=== PATIENT | female | born 1980 | race American Indian/Alaskan Native ===

== ENCOUNTER 2017-05-23 18:24 | Emergency (ER) | payer MEDICAID, OTHER ==
[2017-05-23] MEDS ORDERED: traMADol 50 MG Tab PO ONE (18:25)
[2017-05-23] MEDS ORDERED: Sodium Chloride 0.9% 1,000 ML IV ONE (18:43)
[2017-05-23] MEDS ORDERED: Morphine 2 MG/ML Syringe IVPUSH ONE ×2 (18:59→20:19)
[2017-05-23] MEDS ORDERED: Ondansetron 4 MG/2 ML SDV IV ONE (18:59)
--- NOTE | 2017-05-23 19:04 | EDM.PDOC ---
ED HPI GENERAL MEDICAL PROBLEM - General Chief Complaint: Abdominal Pain Stated Complaint: STOMACH PAIN [id number] Time Seen by Provider: 05/23/17 19:00 Source of Information: Reports: Family History Limitations: Reports: Other (crying) - History of Present Illness INITIAL COMMENTS - FREE TEXT/NARRATIVE: spouse states pt been having upper abd' pain since Wednesday, not seen anyone & not going away, thought it's due to constipation but not taken anything for this , tonight getting worse. no appetite. Abdomen Pain Score (Numeric/FACES): 9 - Related Data Allergies Allergy/AdvReac Type Severity Reaction Status Date / Time ciprofloxacin Allergy Rash Verified 05/23/17 18:34 Home Meds: Home Meds Aspirin [Adult Low Dose Aspirin EC] 81 mg PO DAILY 01/30/15 [History] Pioglitazone [Actos] 30 mg PO DAILY 01/30/15 [History] atorvaSTATin [Lipitor] 40 mg PO DAILY 01/30/15 [History] glipiZIDE [Glucotrol] 5 mg PO BID 01/30/15 [History] Celecoxib [CeleBREX] 100 mg PO BID 05/25/16 [History] Cyclobenzaprine [Flexeril] 10 mg PO TID 05/25/16 [History] Clindamycin HCl 300 mg PO QID 06/06/16 [History] Ondansetron [Zofran] 8 mg PO ASDIRECTED PRN 06/06/16 [History] Past Medical History Cardiovascular History: Reports: High Cholesterol Musculoskeletal History: Reports: Back Pain, Chronic Neurological History: Reports: Migraines Endocrine/Metabolic History: Reports: Diabetes, Type II Dermatologic History: Reports: Other (See Below) Other Dermatologic History: abscesses to breasts that reoccur, patient take clindamycin QID for these abscesses. - Infectious Disease History Infectious Disease History: Reports: None Social & Family History - Family History Family Medical History: Noncontributory - Tobacco Use Smoking Status *Q: Former Smoker Used Tobacco, but Quit: Yes Month Tobacco Last Used: unknown - Caffeine Use Caffeine Use: Reports: None - Recreational Drug Use Recreational Drug Use: No ED ROS GENERAL - Review of Systems Review Of Systems: ROS reveals no pertinent complaints other than HPI. ED EXAM, GI/ABD - Physical Exam Exam: See Below Exam Limited By: Other (crying & rolling about.) General Appearance: Alert, WD/WN, Mild Distress, Other (crying) Ears: Hearing Grossly Normal Throat/Mouth: Normal Voice, No Airway Compromise Head: Atraumatic Neck: Non-Tender, Full Range of Motion Respiratory/Chest: No Respiratory Distress Cardiovascular: Regular Rate, Rhythm GI/Abdominal Exam: Tender, Other (epiG tender with splinting). No: Distended, Guarding, Rigid, Rebound Neurological: Alert, Oriented, Normal Cognition, Normal Gait, No Motor/Sensory Deficits Psychiatric: Tearful Skin Exam: Warm, Dry, Normal Color Lymphatic: No Adenopathy Course - Vital Signs Last Recorded V/S: Last Vital Signs Temp 37.1 C 05/23/17 18:36 Pulse 108 H 05/23/17 18:36 Resp 20 05/23/17 18:36 BP 136/81 05/23/17 18:36 Pulse Ox 99 05/23/17 18:36 - Orders/Labs/Meds Labs: Laboratory Tests 05/23/17 05/23/17 Range/Units 18:47 18:47 WBC 13.1 H (5.0-10.0) 10^3/uL RBC 5.27 (4.2-5.4) 10^6/uL Hgb 14.7 (12.0-16.0) g/dL Hct 43.6 (37.0-47.0) % MCV 82.7 (80-100) fL MCH 27.9 (27.0-34.0) pg MCHC 33.7 (33.0-35.0) g/dL Plt Count 217 (150-450) 10^3/uL Neut % (Auto) 67.8 (42.2-75.2) % Lymph % (Auto) 24.6 (20.5-50.1) % [place] % (Auto) 6.3 (2-8) % Eos % (Auto) 1.1 (1.0-3.0) % Baso % (Auto) 0.2 (0.0-1.0) % Sodium 141 (135-145) mmol/L Potassium 3.6 (3.6-5.0) mmol/L Chloride 103 (101-111) mmol/L Carbon Dioxide 26.0 (21.0-31.0) mmol/L Anion Gap 15.6 BUN 9 (7-18) mg/dL Creatinine 0.6 (0.6-1.3) mg/dL Est Cr Clr Drug Dosing 122.51 mL/min Estimated GFR (MDRD) > 60 BUN/Creatinine Ratio 15.00 Glucose 181 H (74-105) mg/dL Calcium 9.1 (8.4-10.2) mg/dl Total Bilirubin 0.3 (0.2-1.0) mg/dL AST 25 (10-42) IU/L ALT 31 (10-60) IU/L Alkaline Phosphatase 83 (42-121) IU/L Total Protein 7.8 (6.7-8.2) g/dl Albumin 3.9 (3.2-5.5) g/dl Globulin 3.9 Albumin/Globulin Ratio 1.00 Amylase 46 (28-100) U/L Lipase 24 (22-51) U/L HCG, Qual Negative Meds: Medications Discontinued Medications Generic Name Dose Route Start Last Admin Trade Name Freq PRN Reason Stop Dose Admin Dicyclomine HCl 20 mg 05/23/17 20:52 Bentyl IM 05/23/17 20:53 ONETIME ONE Sodium Chloride 1,000 mls @ 500 mls/hr 05/23/17 18:43 05/23/17 18:51 Normal Saline IV 05/23/17 20:42 500 mls/hr .BOLUS ONE Administration Iopamidol 100 ml 05/23/17 19:17 05/23/17 19:21 Isovue-300 (61%) IVPUSH 05/23/17 19:18 100 ml ONETIME ONE Administration Morphine Sulfate 2 mg 05/23/17 18:59 05/23/17 19:04 Morphine IVPUSH 05/23/17 19:00 2 mg ONETIME ONE Administration Morphine Sulfate 2 mg 05/23/17 20:19 05/23/17 20:23 Morphine IVPUSH 05/23/17 20:20 2 mg ONETIME ONE Administration Ondansetron HCl 4 mg 05/23/17 18:59 05/23/17 19:04 Zofran IV 05/23/17 19:00 4 mg ONETIME ONE Administration - Re-Assessments/Exams Free Text/Narrative Re-Assessment/Exam: 05/23/17 20:54 results discussed with pt & spouse. Departure - Departure Time of Disposition: 20:54 Disposition: Home, Self-Care 01 Condition: Good Clinical Impression: Abdominal pain Qualifiers: Abdominal location: upper abdomen, unspecified Qualified Code(s): R10.10 - Upper abdominal pain, unspecified - Discharge Information Instructions: Constipation, Adult, [id number] Forms: ED Department Discharge Additional Instructions: 1) rest 2) try MIRALAX 3) avoid solid foods next 4 to 5 days 4) follow up at clinic or recheck as needed rx given benyl 10mg bid for cramps x 12 tramadol 50mg bid prn x 6
[2017-05-23 19:12] LABS: CHLORIDE,CL 103 mmol/L (101-111); SODIUM,NA 141 mmol/L (135-145)
[2017-05-23] MEDS ORDERED: Iopamidol 612 MG/ML 100 ML Bottle IVPUSH ONE (19:17)
[2017-05-23] MEDS ORDERED: Dicyclomine 20 MG/2 ML SDV IM ONE (20:52)
[2017-05-23] MEDS ORDERED: traMADol 50 MG Tab ONE (21:06)
[2017-05-23 21:24] VITALS: BP 132/85
== END 2017-05-23 21:19 | disposition home or self-care (01) ==
LOC: DL.ED 18:24
DX: R10.10 Upper abdominal pain, unspecified (principal); E78.00 Pure hypercholesterolemia, unspecified; G43.909 Migraine, unspecified, not intractable, without status migrainosus; E11.9 Type 2 diabetes mellitus without complications; Z88.1 Allergy status to other antibiotic agents; Z79.82 Long term (current) use of aspirin; Z79.899 Other long term (current) drug therapy; Z79.84 Long term (current) use of oral hypoglycemic drugs
CPT/HCPCS: 36415; 74177; 80053; 82150; 83690; 84703; 85025; 96361; 96372; 96374; 96375; 99284; A9270; J0500; J2270; J2405; J7030; Q9967

== ENCOUNTER 2019-01-31 22:58 | Emergency (ER) | payer MEDICAID, OTHER ==
[2019-01-31 23:29] VITALS: BP 130/71
[2019-01-31] MEDS ORDERED: Iopamidol 612 MG/ML 100 ML Bottle IVPUSH ONE (23:35)
--- NOTE | 2019-01-31 23:41 | EDM.PDOC ---
ED HPI GENERAL MEDICAL PROBLEM - General Chief Complaint: Upper Extremity Injury/Pain Stated Complaint: INFECTION IN ARM, POST SURGERY [id number] Time Seen by Provider: 01/31/19 23:25 Source of Information: Reports: Patient History Limitations: Reports: No Limitations - History of Present Illness INITIAL COMMENTS - FREE TEXT/NARRATIVE: This 38 yo female patient reports to the ED with increased pain and swelling in her left upper extremity (wrist and hand). The patient had carpal tunnel surgery last week, but today noticed increased pain and swelling in the area. The patient reports her 2 year old child did accidentally kick her in the right hand earlier today. Prior to coming to the ED, the patient did call the nursing line in [place] and was advised to come to the ED to be evaluated. Onset: Today Duration: Constant Location: Reports: Upper Extremity, Left Quality: Reports: Ache, Dull Severity: Moderate Improves with: Reports: None Worsens with: Reports: None Context: Reports: Other Associated Symptoms: Reports: No Other Symptoms - Related Data Allergies Allergy/AdvReac Type Severity Reaction Status Date / Time ciprofloxacin Allergy Rash Verified 05/23/17 18:34 Home Meds: Home Meds Aspirin [Adult Low Dose Aspirin EC] 81 mg PO DAILY 01/30/15 [History] Pioglitazone [Actos] 30 mg PO DAILY 01/30/15 [History] atorvaSTATin [Lipitor] 40 mg PO DAILY 01/30/15 [History] glipiZIDE [Glucotrol] 5 mg PO BID 01/30/15 [History] Celecoxib [CeleBREX] 100 mg PO BID 05/25/16 [History] Cyclobenzaprine [Flexeril] 10 mg PO TID 05/25/16 [History] Clindamycin HCl 300 mg PO QID 06/06/16 [History] Ondansetron [Zofran] 8 mg PO ASDIRECTED PRN 06/06/16 [History] Insulin Detemir [Levemir] 15 unit SUBCUT DAILY 01/31/19 [History] Past Medical History Cardiovascular History: Reports: High Cholesterol Musculoskeletal History: Reports: Back Pain, Chronic Neurological History: Reports: Migraines Endocrine/Metabolic History: Reports: Diabetes, Type I Dermatologic History: Reports: Other (See Below) Other Dermatologic History: abscesses to breasts that reoccur, patient take clindamycin QID for these abscesses. - Infectious Disease History Infectious Disease History: Reports: None Social & Family History - Family History Family Medical History: Noncontributory - Tobacco Use Smoking Status *Q: Never Smoker Second Hand Smoke Exposure: No - Caffeine Use Caffeine Use: Reports: Soda - Recreational Drug Use Recreational Drug Use: No Review of Systems - Review of Systems Review Of Systems: ROS reveals no pertinent complaints other than HPI. ED EXAM, GENERAL - Physical Exam Exam: See Below Exam Limited By: No Limitations General Appearance: Alert, WD/WN, Mild Distress Eye Exam: Bilateral Eye: EOMI, Normal Inspection, PERRL Ears: Normal External Exam, Normal Canal, Hearing Grossly Normal, Normal TMs Nose: Normal Inspection, Normal Mucosa, No Blood Throat/Mouth: Normal Inspection, Normal Lips, Normal Teeth, Normal Gums, Normal Oropharynx, Normal Voice, No Airway Compromise Head: Atraumatic, Normocephalic Neck: Normal Inspection, Supple, Non-Tender, Full Range of Motion Respiratory/Chest: No Respiratory Distress, Lungs Clear, Normal Breath Sounds, No Accessory Muscle Use, Chest Non-Tender Cardiovascular: Normal Peripheral Pulses, Regular Rate, Rhythm, No Edema, No Gallop, No JVD, No Murmur, No Rub GI/Abdominal: Normal Bowel Sounds, Soft, Non-Tender, No Organomegaly, No Distention, No Abnormal Bruit, No Mass (Female) Exam: Deferred Rectal (Female) Exam: Deferred Back Exam: Normal Inspection, Full Range of Motion, NT Extremities: Arm Pain (left upper extremity pain and swelling near incision site , there is some mild erythema over the ulnar aspect of the wrist and some bruising proximal to the surgical site. ), Limited Range of Motion (due to pain) Neurological: Alert, Oriented, CN II-XII Intact, Normal Cognition, Normal Gait, Normal Reflexes, No Motor/Sensory Deficits Psychiatric: Normal Affect, Normal Mood Skin Exam: Warm, Dry, Intact, Normal Color, No Rash Lymphatic: No Adenopathy Course - Vital Signs Last Recorded V/S: Last Vital Signs Temp 36.6 C 01/31/19 23:16 Pulse 82 01/31/19 23:16 Resp 18 01/31/19 23:16 BP 130/71 01/31/19 23:16 Pulse Ox 99 01/31/19 23:16 - Orders/Labs/Meds Orders: Active Orders 24 hr Category Date Time Status Upper Extremity w Cont Lt [CT] Urgent Exams 01/31/19 23:33 Taken Labs: Laboratory Tests 01/31/19 01/31/19 Range/Units 23:20 23:20 WBC 8.8 (5.0-10.0) 10^3/uL RBC 5.01 (4.2-5.4) 10^6/uL Hgb 14.2 (12.0-16.0) g/dL Hct 42.6 (37.0-47.0) % MCV 85.0 (80-100) fL MCH 28.3 (27.0-34.0) pg MCHC 33.3 (33.0-35.0) g/dL Plt Count 196 (150-450) 10^3/uL Neut % (Auto) 56.0 (42.2-75.2) % Lymph % (Auto) 34.3 (20.5-50.1) % [place] % (Auto) 6.0 (2-8) % Eos % (Auto) 3.4 H (1.0-3.0) % Baso % (Auto) 0.3 (0.0-1.0) % Sodium 133 L (135-145) mmol/L Potassium 4.5 (3.6-5.0) mmol/L Chloride 104 (101-111) mmol/L Carbon Dioxide 23.0 (21.0-31.0) mmol/L Anion Gap 10.5 BUN 14 (7-18) mg/dL Creatinine 0.6 (0.6-1.3) mg/dL Est Cr Clr Drug Dosing 116.64 mL/min Estimated GFR (MDRD) > 60 BUN/Creatinine Ratio 23.33 Glucose 167 H (74-105) mg/dL Calcium 8.6 (8.4-10.2) mg/dl Total Bilirubin 0.5 (0.2-1.0) mg/dL AST 34 (10-42) IU/L ALT 28 (10-60) IU/L Alkaline Phosphatase 84 (42-121) IU/L Total Protein 7.6 (6.7-8.2) g/dl Albumin 4.1 (3.2-5.5) g/dl Globulin 3.5 Albumin/Globulin Ratio 1.17 Meds: Medications Discontinued Medications Generic Name Dose Route Start Last Admin Trade Name Freq PRN Reason Stop Dose Admin Iopamidol 100 ml 01/31/19 23:35 Isovue-300 (61%) IVPUSH 01/31/19 23:36 ONETIME ONE Departure - Departure Time of Disposition: 00:59 Disposition: Home, Self-Care 01 Condition: Fair Clinical Impression: Pain and swelling of left wrist - Discharge Information *PRESCRIPTION DRUG MONITORING PROGRAM REVIEWED*: Not Applicable *COPY OF PRESCRIPTION DRUG MONITORING REPORT IN PATIENT LOEPZ: Not Applicable Forms: ED Department Discharge Care Plan Goals: The patient was advised of the examination, lab and CT results during the visit. The patient was encouraged to rest, ice and elevate her left wrist and hand. If the patient has any additional symptoms or concerns, the patient should either return to the emergency department or visit her primary care facility. - My Orders Last 24 Hours: My Active Orders 01/31/19 23:33 Upper Extremity w Cont Lt [CT] Urgent - Assessment/Plan Last 24 Hours: My Active Orders 01/31/19 23:33 Upper Extremity w Cont Lt [CT] Urgent
[2019-01-31 23:45] LABS: ANION GAP 10.5; CHLORIDE,CL 104 mmol/L (101-111); SODIUM,NA 133 mmol/L (135-145)
== END 2019-02-01 01:02 | disposition home or self-care (01) ==
LOC: DL.ED 22:58
DX: M25.532 Pain in left wrist (principal); E10.9 Type 1 diabetes mellitus without complications; E78.00 Pure hypercholesterolemia, unspecified; Z79.82 Long term (current) use of aspirin; Z79.4 Long term (current) use of insulin; Z88.1 Allergy status to other antibiotic agents
CPT/HCPCS: 36415; 73201; 80053; 85025; 99283; Q9967

== ENCOUNTER 2020-04-19 17:33 | Emergency (ER) | payer MEDICAID ==
[2020-04-19] MEDS ORDERED: Lactated Ringers 1,000 ML IV ONE (17:40)
[2020-04-19 17:41] VITALS: BP 130/61; PULSE 94
[2020-04-19] MEDS ORDERED: fentaNYL 100 MCG/2 ML SDV IVPUSH ONE (17:52)
[2020-04-19 18:15] LABS: ANION GAP 16.5 mEq/L (7-13); CHLORIDE,CL 100 mmol/L (98-107); SODIUM,NA 137 mmol/L (136-145)
--- NOTE | 2020-04-19 18:19 | EDM.PDOC ---
<Skye Akers - Last Filed: 04/19/20 18:55> ED HPI GENERAL MEDICAL PROBLEM - General Chief Complaint: Flank Pain Stated Complaint: AMBULANCE Time Seen by Provider: 04/19/20 18:00 Source of Information: Reports: Patient, EMS, EMS Notes Reviewed, RN, RN Notes Reviewed History Limitations: Reports: No Limitations - History of Present Illness INITIAL COMMENTS - FREE TEXT/NARRATIVE: Patient presents to ER per [facility] with complaint of right lower quadrant pain radiating to the right flank/back. Patient states she was to the clinic yesterday, they wanted to transfer her into ER, and patient refused at that time. Patient states she has been having frequency, urgency, burning with urination for the past couple of days. Admits to fever and chills. Rates pain 10/10 to the right flank. Denies nausea, vomiting, diarrhea, chest pains or shortness of breath. Patient denies chances of . States she does still have her appendix. Onset: Gradual Right Flank Pain Score (Numeric/FACES): 10 - Related Data Allergies Allergy/AdvReac Type Severity Reaction Status Date / Time ciprofloxacin Allergy Rash Verified 04/19/20 17:41 Home Meds: Home Meds Aspirin [Adult Low Dose Aspirin EC] 81 mg PO DAILY 01/30/15 [History] Pioglitazone [Actos] 30 mg PO DAILY 01/30/15 [History] atorvaSTATin [Lipitor] 40 mg PO DAILY 01/30/15 [History] glipiZIDE [Glucotrol] 5 mg PO BID 01/30/15 [History] Celecoxib [CeleBREX] 100 mg PO BID 05/25/16 [History] Cyclobenzaprine [Flexeril] 10 mg PO TID 05/25/16 [History] Clindamycin HCl 300 mg PO QID 06/06/16 [History] Ondansetron [Zofran] 8 mg PO ASDIRECTED PRN 06/06/16 [History] Insulin Detemir [Levemir] 15 unit SUBCUT DAILY 01/31/19 [History] Past Medical History Cardiovascular History: Reports: High Cholesterol Musculoskeletal History: Reports: Back Pain, Chronic Neurological History: Reports: Migraines Endocrine/Metabolic History: Reports: Diabetes, Type I Dermatologic History: Reports: Other (See Below) Other Dermatologic History: abscesses to breasts that reoccur, patient take clindamycin QID for these abscesses. - Infectious Disease History Infectious Disease History: Reports: None Social & Family History - Family History Family Medical History: Noncontributory - Tobacco Use Smoking Status *Q: Never Smoker Second Hand Smoke Exposure: No - Caffeine Use Caffeine Use: Reports: Soda - Recreational Drug Use Recreational Drug Use: No ED ROS GENERAL - Review of Systems Review Of Systems: Comprehensive ROS is negative, except as noted in HPI. ED EXAM, RENAL/ - Physical Exam Exam: See Below Exam Limited By: No Limitations General Appearance: Alert, WD/WN, Moderate Distress Eye Exam: Bilateral Eye: EOMI, Normal Inspection Ears: Normal External Exam, Hearing Grossly Normal Nose: Normal Inspection Throat/Mouth: Normal Inspection, Normal Voice, No Airway Compromise Head: Atraumatic, Normocephalic Neck: Normal Inspection, Supple, Non-Tender, Full Range of Motion Respiratory/Chest: No Respiratory Distress, Lungs Clear, Normal Breath Sounds, No Accessory Muscle Use, Chest Non-Tender Cardiovascular: Normal Peripheral Pulses, Regular Rate, Rhythm, No Edema, No Gallop, No JVD, No Murmur, No Rub GI/Abdominal: Normal Bowel Sounds, Soft, No Organomegaly, No Distention, Tender (RLQ) (Female) Exam: Deferred Rectal (Female) Exam: Deferred Back Exam: Normal Inspection, Full Range of Motion, CVA Tenderness (R) Extremities: Normal Inspection, Normal Range of Motion, Non-Tender, Normal Capillary Refill, No Pedal Edema Neurological: Alert, Oriented, Normal Cognition Psychiatric: Normal Affect, Normal Mood, Anxious Skin Exam: Warm, Intact, Normal Color, No Rash, Diaphoretic Lymphatic: No Adenopathy Course - Re-Assessments/Exams Free Text/Narrative Re-Assessment/Exam: 04/19/20 18:39 patient care turned over to Dr. Mcnally at shift change. Departure - Departure Disposition: Home, Self-Care 01 Clinical Impression: UTI, Urinary tract infectious disease, Methamphetamine abuse - Discharge Information Instructions: Urinary Tract Infection, Adult, [id number] Forms: ED Department Discharge Additional Instructions: 1) drink lots of liquids and cranberry juice 2) avoid meth 3) follow up at clinic rx given; bactrim DS bid x 20 pyridium 100mg tid prn x 12 Sepsis Event Note (ED) - Evaluation Sepsis Screening Result: No Definite Risk <James Mcnally - Last Filed: 04/19/20 19:20> Course - Vital Signs Last Recorded V/S: Last Vital Signs Temp 36.1 C 04/19/20 17:36 Pulse 94 04/19/20 17:36 Resp 22 H 04/19/20 17:36 BP 130/61 04/19/20 17:36 Pulse Ox 100 04/19/20 17:36 - Orders/Labs/Meds Orders: Active Orders 24 hr Category Date Time Status CULTURE BLOOD [BC] Stat Lab 04/19/20 18:38 Ordered CULTURE BLOOD [BC] Stat Lab 04/19/20 18:38 Ordered CULTURE URINE [RM] Stat Lab 04/19/20 18:05 Received LACTATE SEPSIS W/ REFLEX [CHEM] Stat Lab 04/19/20 19:05 Received Phenazopyridine [Urinary Pain Relief] Med 04/19/20 19:17 Once 95 mg PO ONETIME ONE Sulfamethoxazole/Trimethoprim [Septra DS] Med 04/19/20 19:17 Once 1 tab PO ONETIME ONE Blood Culture x2 Reflex Set [OM.PC] Stat Oth 04/19/20 18:37 Ordered Labs: Laboratory Tests 04/19/20 04/19/20 04/19/20 Range/Units 17:50 17:50 18:05 WBC 13.6 H (5.0-10.0) 10^3/uL RBC 4.65 (4.2-5.4) 10^6/uL Hgb 12.9 (12.0-16.0) g/dL Hct 38.3 (37.0-47.0) % MCV 82.4 (80-100) fL MCH 27.7 (27.0-34.0) pg MCHC 33.7 (33.0-35.0) g/dL Plt Count 152 (150-450) 10^3/uL Neut % (Auto) 82.7 H (42.2-75.2) % Lymph % (Auto) 10.2 L (20.5-50.1) % [place] % (Auto) 6.8 (2-8) % Eos % (Auto) 0.2 L (1.0-3.0) % Baso % (Auto) 0.1 (0.0-1.0) % Sodium 137 (136-145) mmol/L Potassium 3.5 (3.5-5.1) mmol/L Chloride 100 (98-107) mmol/L Carbon Dioxide 24 (21-32) mmol/L Anion Gap 16.5 H (7-13) mEq/L BUN 13 (7-18) mg/dL Creatinine 0.75 (0.55-1.02) mg/dL Est Cr Clr Drug Dosing 87.82 mL/min Estimated GFR (MDRD) > 60 BUN/Creatinine Ratio 17.3 (No establ ref range) Glucose 131 H (74-99) mg/dL Calcium 8.6 (8.5-10.1) mg/dL Total Bilirubin 0.4 (0.2-1.0) mg/dL AST 48 H (15-37) U/L ALT 53 (14-59) U/L Alkaline Phosphatase 108 (46-116) U/L Total Protein 6.8 (6.4-8.2) g/dL Albumin 3.1 L (3.4-5.0) g/dL Globulin 3.7 Albumin/Globulin Ratio 0.84 Urine Color (YELLOW) Urine Appearance (CLEAR) Urine pH (5.0-9.0) Ur Specific [place] (1.005-1.030) Urine Protein (NEGATIVE) Urine Glucose (UA) (NEGATIVE) Urine Ketones (NEGATIVE) Urine Occult Blood (NEGATIVE) Urine Nitrite (NEGATIVE) Urine Bilirubin (NEGATIVE) Urine Urobilinogen (0.2-1.0) mg/dL Ur Leukocyte Esterase (NEGATIVE) Urine RBC /HPF Urine WBC (0-5/HPF) /HPF Ur Epithelial Cells (NOT SEEN) /HPF Urine Bacteria (0-FEW/HPF) /HPF Urine HCG, Qual Negative Urine Opiates Screen (NEGATIVE) Ur Oxycodone Screen (NEGATIVE) Urine Methadone Screen (NEGATIVE) Ur Barbiturates Screen (NEGATIVE) U Tricyclic Antidepress (NEGATIVE) Ur Phencyclidine Scrn (NEGATIVE) Ur Amphetamine Screen (NEGATIVE) U Methamphetamines Scrn (NEGATIVE) Urine MDMA Screen (NEGATIVE) U Benzodiazepines Scrn (NEGATIVE) Urine Cocaine Screen (NEGATIVE) U Marijuana (THC) Screen (NEGATIVE) Ethyl Alcohol < 3 (0) mg/dL 04/19/20 04/19/20 Range/Units 18:05 18:05 WBC (5.0-10.0) 10^3/uL RBC (4.2-5.4) 10^6/uL Hgb (12.0-16.0) g/dL Hct (37.0-47.0) % MCV (80-100) fL MCH (27.0-34.0) pg MCHC (33.0-35.0) g/dL Plt Count (150-450) 10^3/uL Neut % (Auto) (42.2-75.2) % Lymph % (Auto) (20.5-50.1) % [place] % (Auto) (2-8) % Eos % (Auto) (1.0-3.0) % Baso % (Auto) (0.0-1.0) % Sodium (136-145) mmol/L Potassium (3.5-5.1) mmol/L Chloride (98-107) mmol/L Carbon Dioxide (21-32) mmol/L Anion Gap (7-13) mEq/L BUN (7-18) mg/dL Creatinine (0.55-1.02) mg/dL Est Cr Clr Drug Dosing mL/min Estimated GFR (MDRD) BUN/Creatinine Ratio (No establ ref range) Glucose (74-99) mg/dL Calcium (8.5-10.1) mg/dL Total Bilirubin (0.2-1.0) mg/dL AST (15-37) U/L ALT (14-59) U/L Alkaline Phosphatase (46-116) U/L Total Protein (6.4-8.2) g/dL Albumin (3.4-5.0) g/dL Globulin Albumin/Globulin Ratio Urine Color Yellow (YELLOW) Urine Appearance Slightly cloudy (CLEAR) Urine pH 6.0 (5.0-9.0) Ur Specific [place] <= 1.005 (1.005-1.030) Urine Protein Negative (NEGATIVE) Urine Glucose (UA) Negative (NEGATIVE) Urine Ketones Negative (NEGATIVE) Urine Occult Blood Moderate H (NEGATIVE) Urine Nitrite Negative (NEGATIVE) Urine Bilirubin Negative (NEGATIVE) Urine Urobilinogen 0.2 (0.2-1.0) mg/dL Ur Leukocyte Esterase Large H (NEGATIVE) Urine RBC 10-20 H /HPF Urine WBC 20-30 H (0-5/HPF) /HPF Ur Epithelial Cells Few (NOT SEEN) /HPF Urine Bacteria Moderate H (0-FEW/HPF) /HPF Urine HCG, Qual Urine Opiates Screen Negative (NEGATIVE) Ur Oxycodone Screen Negative (NEGATIVE) Urine Methadone Screen Negative (NEGATIVE) Ur Barbiturates Screen Negative (NEGATIVE) U Tricyclic Antidepress Negative (NEGATIVE) Ur Phencyclidine Scrn Negative (NEGATIVE) Ur Amphetamine Screen Negative (NEGATIVE) U Methamphetamines Scrn Positive H (NEGATIVE) Urine MDMA Screen Negative (NEGATIVE) U Benzodiazepines Scrn Negative (NEGATIVE) Urine Cocaine Screen Negative (NEGATIVE) U Marijuana (THC) Screen Negative (NEGATIVE) Ethyl Alcohol (0) mg/dL Meds: Medications Discontinued Medications Generic Name Dose Route Start Last Admin Trade Name Freq PRN Reason Stop Dose Admin Fentanyl 50 mcg 04/19/20 17:52 04/19/20 17:57 Sublimaze IVPUSH 04/19/20 17:53 50 mcg ONETIME ONE Administration Lactated Ringer's 1,000 mls @ 999 mls/hr 04/19/20 17:40 04/19/20 17:46 Ringers, Lactated IV 04/19/20 18:40 999 mls/hr .BOLUS ONE Administration Iopamidol 100 ml 04/19/20 18:24 04/19/20 18:28 Isovue-300 (61%) IVPUSH 04/19/20 18:25 100 ml ONETIME ONE Administration - Re-Assessments/Exams Free Text/Narrative Re-Assessment/Exam: 04/19/20 19:18 results discussed with pt. Departure - Departure Time of Disposition: 19:19 Condition: Good Sepsis Event Note (ED) - Focused Exam Vital Signs: Vital Signs Temp Pulse Resp BP Pulse Ox 04/19/20 17:36 36.1 C 94 22 H 130/61 100 - My Orders Last 24 Hours: My Active Orders 04/19/20 19:17 Phenazopyridine [Urinary Pain Relief] 95 mg PO ONETIME ONE Sulfamethoxazole/Trimethoprim [Septra DS] 1 tab PO ONETIME ONE - Assessment/Plan Last 24 Hours: My Active Orders 04/19/20 19:17 Phenazopyridine [Urinary Pain Relief] 95 mg PO ONETIME ONE Sulfamethoxazole/Trimethoprim [Septra DS] 1 tab PO ONETIME ONE
[2020-04-19] MEDS ORDERED: Iopamidol 612 MG/ML 100 ML Bottle IVPUSH ONE (18:24)
--- NOTE | 2020-04-19 19:12 | CT ---
PROCEDURE INFORMATION: Exam: CT Abdomen And Pelvis With Contrast Exam date and time: 04/19/2020 6:42 PM Age: 40 years old Clinical indication: Other: Wbc 13,600; Additional info: Rlq pain, right flank pain TECHNIQUE: Imaging protocol: Computed tomography of the abdomen and pelvis with intravenous contrast. Radiation optimization: All CT scans at this facility use at least one of these dose optimization techniques: automated exposure control; mA and/or kV adjustment per patient size (includes targeted exams where dose is matched to clinical indication); or iterative reconstruction. Contrast material: [id number]; Contrast volume: 100 ml; Contrast route: INTRAVENOUS (IV); COMPARISON: CT Abdomen Pelvis w Cont 05/23/2017 7:28 PM FINDINGS: Lungs: The visualized portions of the lung bases demonstrate no acute disease. Liver: There is mild enlargement of the liver. There is a diffuse decrease in hepatic parenchymal density, consistent with fatty infiltration. Gallbladder and bile ducts: Normal. No calcified stones. No ductal dilation. Pancreas: Normal. No ductal dilation. Spleen: Normal. No splenomegaly. Adrenals: Normal. No mass. Kidneys and ureters: Normal. No hydronephrosis. Stomach and bowel: DiverticulosisThere is moderately excessive colonic stool content. Appendix: No evidence of appendicitis. Intraperitoneal space: Unremarkable. No free air. No significant fluid collection. Vasculature: Unremarkable. No abdominal aortic aneurysm. Lymph nodes: Unremarkable. No enlarged lymph nodes. Bladder: Unremarkable as visualized. Reproductive: 3.7 cm by 3.3 cm right adnexal simple cyst. Follow-up is not necessary. Reproductive organs appear otherwise unremarkable. Bones/joints: No acute skeletal pathology. Mild multilevel degenerative changes of the spine, as manifested by multilevel anterior osteophytes and multilevel decrease in intervertebral disc space. Soft tissues: Unremarkable. IMPRESSION: 1. Negative for acute abdominopelvic pathology. 2. Incidental findings as detailed above.
[2020-04-19] MEDS ORDERED: Phenazopyridine 95 MG Tab PO ONE (19:17)
[2020-04-19] MEDS ORDERED: Sulfamethoxazole/Trimethoprim 800-160 MG Tab PO ONE (19:17)
== END 2020-04-19 19:32 | disposition home or self-care (01) ==
LOC: DL.ED 17:33
DX: N39.0 Urinary tract infection, site not specified (principal); F15.10 Other stimulant abuse, uncomplicated; E10.9 Type 1 diabetes mellitus without complications; G43.909 Migraine, unspecified, not intractable, without status migrainosus; E78.00 Pure hypercholesterolemia, unspecified; Z88.1 Allergy status to other antibiotic agents; Z88.2 Allergy status to sulfonamides; Z79.4 Long term (current) use of insulin; Z79.899 Other long term (current) drug therapy
CPT/HCPCS: 36415; 74177; 80053; 80305; 80307; 81001; 81025; 83605; 85025; 87040; 87086; 87088; 87186; 96374; 99285; A9270; J3010; J7120; Q9967

== ENCOUNTER 2021-09-23 14:50 | Emergency (ER) | payer MEDICAID ==
[2021-09-23 15:02] VITALS: BP 133/91; PULSE 119
[2021-09-23] MEDS ORDERED: HYDROmorphone 0.5 MG/0.5 ML Syringe IVPUSH ONE (15:49)
[2021-09-23 16:29] LABS: ANION GAP 13.8 mEq/L (7-13); CHLORIDE,CL 101 mmol/L (98-107); SODIUM,NA 140 mmol/L (136-145)
== END 2021-09-23 17:10 | disposition home or self-care (01) ==
LOC: DL.ED 14:50
DX: M62.838 Other muscle spasm (principal); E10.9 Type 1 diabetes mellitus without complications; Z88.1 Allergy status to other antibiotic agents; Z79.84 Long term (current) use of oral hypoglycemic drugs
CPT/HCPCS: 36415; 80053; 83605; 85025; 85379; 87040; 99283; J1170; 96374

== ENCOUNTER 2022-03-23 19:13 | Emergency (ER) | payer MEDICAID ==
[2022-03-23] MEDS ORDERED: LORazepam 2 MG/ML SDV IVPUSH ONE (20:00)
[2022-03-23 20:25] LABS: ANION GAP 9.7 mEq/L (7-13)
[2022-03-23 20:31] LABS: AMPHETAMINES,URINE POSITIVE (NEGATIVE); BARBITURATES,URINE NEGATIVE (NEGATIVE); BENZODIAZEPINE,URINE NEGATIVE (NEGATIVE); MDMA (ECSTASY), URINE NEGATIVE (NEGATIVE); METHADONE,URINE NEGATIVE (NEGATIVE); METHAMPHETAMINES,URINE POSITIVE (NEGATIVE); OPIATES,URINE POSITIVE (NEGATIVE); OXYCODONE,URINE NEGATIVE (NEGATIVE); PHENCYCLIDINE,URINE NEGATIVE (NEGATIVE); TCA,URINE NEGATIVE (NEGATIVE)
[2022-03-23 22:30] VITALS: BP 125/89; PULSE 82
== END 2022-03-23 22:28 | disposition home or self-care (01) ==
LOC: DL.ED 19:13
DX: E11.42 Type 2 diabetes mellitus with diabetic polyneuropathy (principal); F17.210 Nicotine dependence, cigarettes, uncomplicated; Z88.1 Allergy status to other antibiotic agents; Z79.01 Long term (current) use of anticoagulants
CPT/HCPCS: 36415; 73552; 73590; 80053; 80305; 81001; 81025; 85025; 87086; 96374; 99284; J2060

== ENCOUNTER 2022-03-27 21:56 | Emergency (ER) | payer MEDICAID ==
[2022-03-27 22:25] LABS: ANION GAP 10.9 mEq/L (7-13); CHLORIDE,CL 103 mmol/L (98-107); SODIUM,NA 137 mmol/L (136-145)
[2022-03-27 22:25] LABS: AMPHETAMINES,URINE POSITIVE (NEGATIVE); BARBITURATES,URINE NEGATIVE (NEGATIVE); BENZODIAZEPINE,URINE NEGATIVE (NEGATIVE); MDMA (ECSTASY), URINE NEGATIVE (NEGATIVE); METHADONE,URINE NEGATIVE (NEGATIVE); METHAMPHETAMINES,URINE POSITIVE (NEGATIVE); OPIATES,URINE NEGATIVE (NEGATIVE); OXYCODONE,URINE NEGATIVE (NEGATIVE); PHENCYCLIDINE,URINE NEGATIVE (NEGATIVE); TCA,URINE NEGATIVE (NEGATIVE)
[2022-03-27] MEDS ORDERED: Sodium Chloride 0.9% 1,000 ML IV ONE (22:26)
[2022-03-27 22:29] LABS: ESTIMATED GFR 123 mL/min (>=60)
[2022-03-27] MEDS ORDERED: Iopamidol 612 MG/ML 100 ML Bottle IVPUSH ONE (22:55)
[2022-03-27 23:46] VITALS: BP 107/52; PULSE 86
[2022-03-28] MEDS ORDERED: fentaNYL 100 MCG/2 ML SDV IVPUSH ONE (01:29)
== END 2022-03-28 00:49 | disposition home or self-care (01) ==
LOC: DL.ED 21:56
DX: K29.00 Acute gastritis without bleeding (principal); N83.201 Unspecified ovarian cyst, right side; E11.9 Type 2 diabetes mellitus without complications; Z88.1 Allergy status to other antibiotic agents; Z79.01 Long term (current) use of anticoagulants
CPT/HCPCS: 36415; 74177; 80053; 80305-QW; 80307; 81001; 81025; 83690; 83735; 85025; 96361; 96374; 99284-25; J3010; J7030; Q9967

== ENCOUNTER 2022-06-28 00:20 | Emergency (ER) | payer MEDICAID ==
[2022-06-28] MEDS ORDERED: Sodium Chloride 0.9% 1,000 ML IV ONE (00:27)
[2022-06-28] MEDS ORDERED: Ondansetron 4 MG/2 ML SDV IVPUSH ONE (00:30)
[2022-06-28] MEDS ORDERED: HYDROmorphone 1 MG/ML Syringe IVPUSH ONE (00:30)
[2022-06-28 00:32] VITALS: BP 116/57; PULSE 106
[2022-06-28 01:07] LABS: ANION GAP 14.2 mEq/L (7-13); CHLORIDE,CL 103 mmol/L (98-107); SODIUM,NA 140 mmol/L (136-145)
[2022-06-28 01:14] LABS: ESTIMATED GFR 113 mL/min (>=60)
[2022-06-28 01:28] LABS: AMPHETAMINES,URINE NEGATIVE (NEGATIVE); BARBITURATES,URINE NEGATIVE (NEGATIVE); BENZODIAZEPINE,URINE NEGATIVE (NEGATIVE); MDMA (ECSTASY), URINE NEGATIVE (NEGATIVE); METHADONE,URINE NEGATIVE (NEGATIVE); METHAMPHETAMINES,URINE POSITIVE (NEGATIVE); OPIATES,URINE POSITIVE (NEGATIVE); OXYCODONE,URINE NEGATIVE (NEGATIVE); PHENCYCLIDINE,URINE NEGATIVE (NEGATIVE); TCA,URINE NEGATIVE (NEGATIVE)
[2022-06-28] MEDS ORDERED: Iopamidol 612 MG/ML 100 ML Bottle IVPUSH ONE (01:44)
[2022-06-28] MEDS ORDERED: fentaNYL 100 MCG/2 ML SDV IVPUSH ONE (02:44)
[2022-06-28] MEDS ORDERED: fentaNYL 100 MCG/2 ML SDV IVPUSH PRN (04:59)
[2022-06-28] MEDS ORDERED: Ketorolac 30 MG/ML SDV IVPUSH ONE (05:20)
== END 2022-06-28 06:15 | disposition home or self-care (01) ==
LOC: DL.ED 00:20
DX: N83.209 Unspecified ovarian cyst, unspecified side (principal); E11.9 Type 2 diabetes mellitus without complications; F17.210 Nicotine dependence, cigarettes, uncomplicated; Z88.1 Allergy status to other antibiotic agents; Z79.899 Other long term (current) drug therapy; Z79.01 Long term (current) use of anticoagulants
CPT/HCPCS: 36415; 74177; 80053; 80305; 81003; 82150; 83605; 83690; 84703; 85025; 85610; 86140; 96361; 96374; 96375; 96376; 99284; C1758; J1170; J1885; J2405; J3010; J7030; Q9967

== ENCOUNTER 2023-01-05 13:15 | Emergency (ER) | payer MEDICAID ==
[2023-01-05] MEDS ORDERED: Sodium Chloride 0.9% 10 ML Syringe FLUSH PRN (13:17)
[2023-01-05] MEDS ORDERED: diphenhydrAMINE 50 MG/ML SDV IVPUSH ONE (13:28)
[2023-01-05] MEDS ORDERED: LORazepam 2 MG/ML SDV IVPUSH ONE (13:28)
[2023-01-05 13:29] VITALS: BP 131/91; PULSE 98
[2023-01-05] MEDS ORDERED: Acetaminophen 500 MG Tab PO ONE (13:29)
[2023-01-05 13:58] LABS: CHLORIDE,CL 100 mmol/L (98-107); ESTIMATED GFR 118 mL/min (>=60); SODIUM,NA 137 mmol/L (136-145)
[2023-01-05 14:08] LABS: AMPHETAMINES,URINE NEGATIVE (NEGATIVE); BARBITURATES,URINE NEGATIVE (NEGATIVE); BENZODIAZEPINE,URINE NEGATIVE (NEGATIVE); MDMA (ECSTASY), URINE NEGATIVE (NEGATIVE); METHADONE,URINE NEGATIVE (NEGATIVE); METHAMPHETAMINES,URINE NEGATIVE (NEGATIVE); OPIATES,URINE NEGATIVE (NEGATIVE); OXYCODONE,URINE NEGATIVE (NEGATIVE); PHENCYCLIDINE,URINE NEGATIVE (NEGATIVE); TCA,URINE NEGATIVE (NEGATIVE)
[2023-01-05] MEDS ORDERED: Iopamidol 612 MG/ML 100 ML Bottle IVPUSH ONE (14:48)
[2023-01-05] MEDS ORDERED: Lidocaine 1% 5 ML VIAL IV ONE (16:20)
[2023-01-05] MEDS ORDERED: Lidocaine 1% 5 ML VIAL ONE (16:20)
[2023-01-05] MEDS ORDERED: Lidocaine 1% 5 ML VIAL INJECT ONE ×2 (16:38)
[2023-01-05] MEDS ORDERED: HYDROmorphone 0.5 MG/0.5 ML Syringe IVPUSH ONE (18:20)
[2023-01-05] MEDS ORDERED: Ondansetron 8 MG in Sodium Chloride 0.9% 50 ML IV ONE (18:39)
[2023-01-05] MEDS ORDERED: Sodium Chloride 0.9% 1,000 ML IV ONE (19:28)
[2023-01-05 19:41] LABS: CORONAVIRUS COVID-19 NAA NEGATIVE (NEGATIVE); RESPIRATORY SYNCYTIAL VIR NAA NEGATIVE (NEGATIVE)
== END 2023-01-05 20:16 | disposition home or self-care (01) ==
LOC: DL.ED 13:15
DX: B34.9 Viral infection, unspecified (principal); E11.9 Type 2 diabetes mellitus without complications; Z88.1 Allergy status to other antibiotic agents; Z88.0 Allergy status to penicillin; Z79.899 Other long term (current) drug therapy; Z79.01 Long term (current) use of anticoagulants; Z20.822 Contact with and (suspected) exposure to COVID-19
CPT/HCPCS: 0241U; 36415; 70450; 72133; 80053; 80305-QW; 80307; 81025; 82140; 82945; 83605; 83735; 84157; 85025; 86140; 87040; 87070; 87081; 87205; 87430; 89050; 93005; 96361; 96374; 96375; 99284-25; A9270-GY; J1170; J1200; J2060; J2405; J3490; J7030; Q9967

== ENCOUNTER 2023-01-06 18:39 | Emergency (ER) | payer MEDICAID ==
[2023-01-06 18:52] VITALS: BP 110/81; PULSE 97
[2023-01-06] MEDS ORDERED: Ondansetron 4 MG/2 ML SDV IVPUSH ONE (19:08)
[2023-01-06] MEDS ORDERED: Sodium Chloride 0.9% 1,000 ML IV ONE (19:08)
[2023-01-06] MEDS ORDERED: HYDROmorphone 0.5 MG/0.5 ML Syringe IVPUSH ONE ×3 (19:37→20:58)
[2023-01-06 19:42] LABS: ANION GAP 15.8 mEq/L (7-13)
[2023-01-06 19:55] LABS: AMPHETAMINES,URINE NEGATIVE (NEGATIVE); BARBITURATES,URINE NEGATIVE (NEGATIVE); BENZODIAZEPINE,URINE NEGATIVE (NEGATIVE); MDMA (ECSTASY), URINE NEGATIVE (NEGATIVE); METHADONE,URINE NEGATIVE (NEGATIVE); METHAMPHETAMINES,URINE NEGATIVE (NEGATIVE); OPIATES,URINE NEGATIVE (NEGATIVE); OXYCODONE,URINE NEGATIVE (NEGATIVE); PHENCYCLIDINE,URINE NEGATIVE (NEGATIVE); TCA,URINE NEGATIVE (NEGATIVE)
[2023-01-06] MEDS ORDERED: metroNIDAZOLE 250 MG Tab PO ONE (20:57)
[2023-01-06] MEDS ORDERED: Clindamycin HCl 150 MG Cap PO ONE (20:57)
== END 2023-01-06 21:17 | disposition home or self-care (01) ==
LOC: DL.ED 18:39
DX: J01.00 Acute maxillary sinusitis, unspecified (principal); A59.9 Trichomoniasis, unspecified; E78.00 Pure hypercholesterolemia, unspecified; E11.9 Type 2 diabetes mellitus without complications; Z88.0 Allergy status to penicillin; Z88.1 Allergy status to other antibiotic agents; Z79.01 Long term (current) use of anticoagulants
CPT/HCPCS: 36415; 70486; 80053; 80305-QW; 81001; 81025; 83605; 85025; 87086; 87088; 87186; 96361; 96374; 96375; 96376; 99285-25; A9270-GY; J1170; J2405; J7030

== ENCOUNTER 2023-05-24 22:18 | Emergency (ER) | payer OTHER, MEDICAID ==
[2023-05-24 22:25] VITALS: BP 153/101; PULSE 95
[2023-05-24] MEDS ORDERED: Iopamidol 755 Mg/ML 100 ML Bottle IVPUSH ONE (22:25)
[2023-05-24] MEDS ORDERED: Ondansetron 4 MG/2 ML SDV IVPUSH ONE (22:26)
[2023-05-24] MEDS ORDERED: Sodium Chloride 0.9% 10 ML Syringe FLUSH PRN (22:26)
[2023-05-24] MEDS ORDERED: fentaNYL 100 MCG/2 ML SDV IVPUSH ONE (22:26)
[2023-05-24 22:57] LABS: ANION GAP 10.2 mEq/L (7-13); BLOOD UREA NITROGEN,BUN 10 mg/dL (7-18); CALCIUM 8.8 mg/dL (8.5-10.1); CARBON DIOXIDE,CO2 28 mmol/L (21-32); CHLORIDE,CL 101 mmol/L (98-107); CREATININE 0.88 mg/dL (0.55-1.02); GLUCOSE RANDOM 164 mg/dL (70-99); POTASSIUM,K 4.2 mmol/L (3.5-5.1); SODIUM,NA 135 mmol/L (136-145)
[2023-05-24 23:04] LABS: ESTIMATED GFR 85 mL/min (>=60)
== END 2023-05-25 00:39 | disposition home or self-care (01) ==
LOC: DL.ED 22:18
DX: S20.211A Contusion of right front wall of thorax, initial encounter (principal); E11.9 Type 2 diabetes mellitus without complications; Z88.0 Allergy status to penicillin; Z88.1 Allergy status to other antibiotic agents; Z79.899 Other long term (current) drug therapy; V89.2XXA Person injured in unspecified motor-vehicle accident, traffic, initial encounter; Y92.410 Unspecified street and highway as the place of occurrence of the external cause
CPT/HCPCS: 36415; 71275; 80048; 96374; 96375; 99285; J2405; J3010; Q9967; J3490

== ENCOUNTER 2023-06-12 07:33 | Emergency (ER) | payer MEDICAID ==
[2023-06-12 07:52] VITALS: BP 152/95; PULSE 121
== END 2023-06-12 08:00 | disposition home or self-care (01) ==
LOC: DL.ED 07:33
DX: M79.605 Pain in left leg (principal); G89.29 Other chronic pain; E78.00 Pure hypercholesterolemia, unspecified; E11.9 Type 2 diabetes mellitus without complications; Z02.89 Encounter for other administrative examinations; Z88.0 Allergy status to penicillin; Z88.1 Allergy status to other antibiotic agents
CPT/HCPCS: 99283

== ENCOUNTER 2024-01-15 18:34 | Emergency (ER) | payer SELFPAY ==
[2024-01-15 19:06] VITALS: BP 141/98; PULSE 130
[2024-01-15] MEDS: Sodium Chloride 0.9% 10 ML Syringe FLUSH PRN (20:26)
[2024-01-15] MEDS: Iopamidol 612 MG/ML 100 ML Bottle IVPUSH ONE (20:26)
== END 2024-01-15 22:20 | disposition home or self-care (01) ==
LOC: DL.ED 18:34
DX: K14.8 Other diseases of tongue (principal); I10 Essential (primary) hypertension; E11.9 Type 2 diabetes mellitus without complications; F17.210 Nicotine dependence, cigarettes, uncomplicated; Z88.1 Allergy status to other antibiotic agents; Z88.0 Allergy status to penicillin; Z88.8 Allergy status to other drugs, medicaments and biological substances; Z79.899 Other long term (current) drug therapy; Z79.01 Long term (current) use of anticoagulants
CPT/HCPCS: 36415; 70487; 86592; 86593; 86780; 99283; Q9967; J3490

== ENCOUNTER 2024-05-18 21:45 | Emergency (ER) | payer SELFPAY ==
[2024-05-18 22:10] VITALS: BP 108/69; PULSE 123
[2024-05-18] MEDS: HYDROmorphone 0.5 MG/0.5 ML Syringe IVPUSH ONE (22:25)
[2024-05-18] MEDS: Sodium Chloride 0.9% 1,000 ML IV ONE (22:29)
== END 2024-05-18 23:06 | disposition home or self-care (01) ==
LOC: DL.ED 21:45
DX: N83.201 Unspecified ovarian cyst, right side (principal); E11.9 Type 2 diabetes mellitus without complications; I10 Essential (primary) hypertension; Z79.01 Long term (current) use of anticoagulants; Z79.84 Long term (current) use of oral hypoglycemic drugs; Z79.899 Other long term (current) drug therapy; Z88.0 Allergy status to penicillin; Z88.1 Allergy status to other antibiotic agents
CPT/HCPCS: 96374; 99283; 99284-25; J1170